=== PATIENT | male | born 1945 | race Two or more races ===

== ENCOUNTER 2017-03-31 16:02 | Outpatient (CLI) | payer OTHER ==
[~2017-03-31 16:02] MED LIST: AVAPRO150 MG; FOLIC ACID1 MG PO; LOPRESSOR25 MG; LOPRESSOR25 MG PO; METHOCARBAMOL500 MG PO; NABUMETONE750 MG PO; SORBUTUSS LIQU473 ML PO; SYNTHROID200 MCG; SYNTHROID200 MCG PO; TESSALON200 MG PO; TOPROL XL25 M1; VASOTEC10 MG NGT; VASOTEC20 MG; ZYRTEC10 MG PO
== END 2017-03-31 16:26 | disposition home or self-care (01) ==
LOC: RAD 501 16:02
DX: M25.521 Pain in right elbow (principal)

== ENCOUNTER 2017-04-04 09:38 | Outpatient (CLI) | payer OTHER | END 2017-04-04 15:15 | disposition home or self-care (01) | LOC: MRI 09:38 | DX: M25.561 Pain in right knee (principal); M23.91 Unspecified internal derangement of right knee | CPT/HCPCS: 73721 ==

== ENCOUNTER 2017-04-08 09:25 | Outpatient (CLI) | payer OTHER | END 2017-04-08 09:37 | disposition home or self-care (01) | LOC: LAB 09:25 | DX: D64.89 Other specified anemias (principal); E88.89 Other specified metabolic disorders; D68.8 Other specified coagulation defects; N39.0 Urinary tract infection, site not specified; A49.02 Methicillin resistant Staphylococcus aureus infection, unspecified site ==

== ENCOUNTER 2017-04-08 09:39 | Outpatient (CLI) | payer OTHER | END 2017-04-08 09:51 | disposition home or self-care (01) | LOC: RAD 09:39 → LAB 09:39 → RAD 09:51 | DX: Z76.89 Persons encountering health services in other specified circumstances (principal) ==

== ENCOUNTER 2017-04-08 09:48 | Outpatient (CLI) | payer OTHER | END 2017-04-08 09:52 | disposition home or self-care (01) | LOC: EKG 09:48 | DX: I49.8 Other specified cardiac arrhythmias (principal) ==

== ENCOUNTER 2017-04-22 05:50 | Day surgery (SDC) | payer OTHER | END 2017-04-22 13:30 | disposition home or self-care (01) | LOC: CIR.AMB 05:50 | DX: M23.221 Derangement of posterior horn of medial meniscus due to old tear or injury, right knee (principal); M17.12 Unilateral primary osteoarthritis, left knee; M22.41 Chondromalacia patellae, right knee; M12.261 Villonodular synovitis (pigmented), right knee ==

== ENCOUNTER 2017-05-30 07:40 | Emergency (ER) | payer OTHER ==
[~2017-05-30] VITALS: Ht 180.3 cm; Wt 92.5 kg
[2017-05-30] MEDS ORDERED: SYNTHROID125 MCG (07:56)
== END 2017-05-30 13:55 | disposition home or self-care (01) ==
LOC: ER 07:40 → CPU-OBS 07:44 → ER 07:44
DX: R07.89 Other chest pain (principal)

== ENCOUNTER 2018-02-17 13:01 | Outpatient (CLI) | payer OTHER ==
[~2018-02-17 13:01] MED LIST changes: +SYNTHROID125 MCG
== END 2018-02-17 13:11 | disposition home or self-care (01) ==
LOC: RAD 13:01
DX: J06.9 Acute upper respiratory infection, unspecified (principal); I10 Essential (primary) hypertension; N39.0 Urinary tract infection, site not specified

== ENCOUNTER → 2018-08-14 | Outpatient (CLI) | payer OTHER | END | disposition home or self-care (01) | LOC: RAD 13:08 | DX: M72.2 Plantar fascial fibromatosis (principal); M15.8 Other polyosteoarthritis ==

== ENCOUNTER 2018-08-29 14:11 | Outpatient (CLI) | payer OTHER | END 2018-08-29 14:23 | disposition home or self-care (01) | LOC: MRI 14:11 | DX: M17.12 Unilateral primary osteoarthritis, left knee (principal) | CPT/HCPCS: 73718 ==

== ENCOUNTER 2018-09-28 10:47 | Outpatient (CLI) | payer OTHER | END 2018-09-28 12:00 | disposition home or self-care (01) | LOC: NUCLEAR 10:47 | DX: M81.0 Age-related osteoporosis without current pathological fracture (principal) ==

== ENCOUNTER 2018-11-06 05:45 | Day surgery (SDC) | payer OTHER ==
[~2018-11-06 05:45] MED LIST changes: +MULTIVITAMINS1 EAC9 PO; +NORVASC2.5 M1 PO; +PROBIOTIC1 EAC2 PO
== END 2018-11-06 14:00 | disposition home or self-care (01) ==
LOC: CIR.AMB 05:45
DX: M23.322 Other meniscus derangements, posterior horn of medial meniscus, left knee (principal); M22.02 Recurrent dislocation of patella, left knee; M22.42 Chondromalacia patellae, left knee; M12.262 Villonodular synovitis (pigmented), left knee

== ENCOUNTER → 2018-11-17 | Outpatient (CLI) | payer OTHER | END | disposition home or self-care (01) | LOC: NUCLEAR 16:30 | DX: I87.2 Venous insufficiency (chronic) (peripheral) (principal) ==

== ENCOUNTER 2022-04-05 06:57 | Emergency (ER) | payer OTHER ==
[~2022-04-05] VITALS: Ht 180.3 cm; Wt 94.3 kg
[2022-04-05] MEDS ORDERED: ECOTRIN81 MG PO (07:10)
[2022-04-05] MEDS ORDERED: CRESTOR10 MG PO (07:10)
== END 2022-04-05 10:18 | disposition home or self-care (01) ==
LOC: ER 06:57
DX: N20.0 Calculus of kidney (principal); I10 Essential (primary) hypertension; I72.2 Aneurysm of renal artery